=== PATIENT | female | born 1965 | race Caucasian/White ===

== ENCOUNTER 2016-07-27 18:14 | Emergency (ER) | payer OTHER ==
[~2016-07-27 18:14] MED LIST: ALDACTONE50 MG PO; BACTRIM DS TAB1 EACH PO; FENOFIBRATE160 MG PO; GLUCOPHAGE500 MG PO; HYDROCODON-ACE1 EAC4 PO; LANTUS100 UNIT/1 INJ; LIPITOR10 MG PO; NAPROSYN500 MG PO; NEURONTIN300 MG PO; NOVOLOG1 UNIT/0.0 INJ; PRINIVIL10 MG PO
== END 2016-07-27 22:00 | disposition home or self-care (01) ==
LOC: ER 18:14
DX: E11.43 Type 2 diabetes mellitus with diabetic autonomic (poly)neuropathy (principal); K31.84 Gastroparesis; I10 Essential (primary) hypertension; E78.00 Pure hypercholesterolemia, unspecified; Z90.49 Acquired absence of other specified parts of digestive tract; Z79.84 Long term (current) use of oral hypoglycemic drugs; Z79.899 Other long term (current) drug therapy; Z88.6 Allergy status to analgesic agent; Z88.1 Allergy status to other antibiotic agents
CPT/HCPCS: 36415; 96361; 96374; 96375; J2765; Q9967